=== PATIENT | female | born 1955 ===

== ENCOUNTER → 2021-06-25 07:49 | Outpatient (BNVA) | payer MEDICARE, SELFPAY | PROVIDERS: PCP Internal Medicine; Visit Provider Psychiatry & Neurology Neurology | DX: H02.401 Unspecified ptosis of right eyelid (principal) | CPT/HCPCS: 99202 ==

== ENCOUNTER → 2021-07-23 08:29 | Outpatient (BNVA) | payer MEDICARE, BC, SELFPAY | PROVIDERS: PCP Internal Medicine; Visit Provider Psychiatry & Neurology Neurology | DX: H02.409 Unspecified ptosis of unspecified eyelid (principal); R25.1 Tremor, unspecified | CPT/HCPCS: 99212 ==